=== PATIENT | male | born 1950 | race Caucasian/White ===

== ENCOUNTER → 2020-05-28 | Outpatient (CLI) | payer MEDICARE, OTHER ==
[2020-05-28 11:44] LABS: ABSOLUTE EOSINOPHILS # (AUTO) 0.3 10^3/uL (0.0-0.6); ABSOLUTE LYMPHOCYTES (AUTO) 1.4 10^3/uL (0.5-4.7); ABSOLUTE MONOCYTES (AUTO) 0.6 10^3/uL (0.1-1.4); ABSOLUTE NEUT (AUTO) 3.5 10^3/uL (1.7-8.2); BASOPHILS % (AUTO) 0.6 % (0-2); EOSINOPHILS % (AUTO) 4.3 % (0-6); HEMATOCRIT 53.4 % (37.9-51.0); HEMOGLOBIN 18.3 g/dL (13.5-17.0); LYMPHOCYTES % (AUTO) 23.8 % (13-45); MEAN CORPUSCULAR HEMOGLOBIN 31.6 pg (27.0-33.4); MEAN CORPUSCULAR HGB CONC 34.2 g/dL (32.0-36.0); MEAN CORPUSCULAR VOLUME 92 fl (80-97); MONOCYTES % (AUTO) 10.2 % (3-13); PLATELET COUNT 231 10^3/uL (150-450); RED BLOOD COUNT 5.79 10^6/uL (4.35-5.55); RED CELL DISTRIBUTION WIDTH 13.8 % (11.5-14.0); SEGMENTED NEUTROPHILS % (AUTO) 61.1 % (42-78); TOTAL CELLS COUNTED % (AUTO) 100 %; WHITE BLOOD COUNT 5.8 10^3/uL (4.0-10.5)
[2020-05-28 12:02] LABS: ALBUMIN 4.3 g/dL (3.5-5.0); ALKALINE PHOSPHATASE 70 U/L (38-126); ANION GAP 6 (5-19); ASPARTATE AMINO TRANSFERASE 28 U/L (17-59); BILIRUBIN,TOTAL 0.7 mg/dL (0.2-1.3); BLOOD UREA NITROGEN 19 mg/dL (7-20); CALCIUM 9.8 mg/dL (8.4-10.2); CARBON DIOXIDE 29 mmol/L (22-30); CHLORIDE 107 mmol/L (98-107); CHOLESTEROL 271.04 mg/dL (0-200); GLUCOSE 116 mg/dL (75-110); POTASSIUM 4.3 mmol/L (3.6-5.0); TOTAL PROTEIN 7.4 g/dL (6.3-8.2); TRIGLYCERIDES 114 mg/dL (<150)
[2020-05-28 12:14] LABS: DIRECT LDL 210 mg/dL (<100)
== END ==
LOC: OD 10:57
PROVIDERS: ATTEND Internal Medicine
DX: I10 Essential (primary) hypertension (principal); E78.5 Hyperlipidemia, unspecified; G45.1 Carotid artery syndrome (hemispheric); R73.9 Hyperglycemia, unspecified; N40.1 Benign prostatic hyperplasia with lower urinary tract symptoms; R35.1 Nocturia; Z86.73 Personal history of transient ischemic attack (TIA), and cerebral infarction without residual deficits
CPT/HCPCS: 36415; 80053; 80061; 83036; 84153; 84443; 85025

== ENCOUNTER → 2020-05-29 | Outpatient (CLI) | payer MEDICARE, OTHER ==
--- NOTE | 2020-05-29 15:16 | RADIOLOGY REPORT (SQ) ---
EXAM DESCRIPTION: MRI HEAD WITHOUT; MRA HEAD WITHOUT IMAGES COMPLETED DATE/TIME: 05/29/2020 2:44 pm REASON FOR STUDY: G45.3 AMAUROSIS FUGAX, G45.1 CAROTID ARTERY SYNDROME (HEMISPHERIC), I63.9 C; G45.3 G45.3 AMAUROSIS FUGAX G45.1 CAROTID ARTERY SYNDROME (HEMISPHERIC) I63.9 CEREBRAL INFARCTION, UNSP ECIFIED COMPARISON: None. TECHNIQUE: Multiplanar imaging includes non-contrasted T1, T2, FLAIR, and diffusion with ADC map seq uences. [place] MRA EXAM WAS PERFORMED WITH 3D [id number] ACQUISITION. SOURCE DATA AND MAXIMUM INTENSITY PROJECTED IMAGES WERE REVIEWED. Images stored on PACS. LIMITATIONS: None. FINDINGS: [place] MRA: Abnormally decreased flow is seen in the right high cervical interna l carotid artery, right ICA at the skullbase and parasellar regions with trace flow in the right para clinoid region. Findings are worrisome for more proximal high-grade critical stenosis at the right c arotid bifurcation. Markedly diminished flow signal is seen in the right middle cerebral artery and its perisylvian branc hes. Normal flow signal in the left high cervical internal carotid artery, left internal carotid artery at the skullbase, left anterior and middle cerebral arteries. Normal flow signal in the vertebrobasilar system. MRI BRAIN WITHOUT CONTRAST: CSF SPACES: Normal in size and contour. No hemorrhage. CEREBRUM: Diffusion-weighted images are positive for acute/early subacute nonhemorrhagic ischemic aleksander nge in the right deep periventricular white matter from watershed ischemia. Corresponding increased FLAIR/ T2 signal indicates that these ischemic changes are greater than 24 hours old. T2 weighted brain images demonstrate abnormal flow signal in the right high cervical internal carotid artery, and carotid artery at the skullbase/paraclinoid ICA which correlates with the MRA exam. POSTERIOR FOSSA: No signal alteration. No hemorrhage. No edema, masses or mass effect. Internal margarita tory canals, cerebello-pontine angles, mastoids normal. DIFFUSION IMAGING: Diffusion-weighted images are positive for acute/early subacute nonhemorrhagic isc hemic change in the right deep periventricular white matter from watershed ischemia. Corresponding i ncreased FLAIR/ T2 signal indicates that these ischemic changes are greater than 24 hours old. ORBITS: No masses. Globes normal. PARANASAL SINUSES: No fluid levels. Mucosa normal. OTHER: No other significant finding. IMPRESSION: Early subacute nonhemorrhagic watershed ischemic change in the right deep periventricula r white matter from more proximal carotid bifurcation disease. Abnormal flow signal in the right high cervical, skullbase, paraclinoid ICA from more proximal high-g rade stenosis. Results discussed with , 1430 hours 05/29/2020 as a critical result EVIDENCE OF ACUTE STROKE: Early subacute nonhemorrhagic right hemisphere watershed distribution COMMENT: Pertinent findings on the imaging study reported as a CRITICAL RESULT to ROSANNA Clement MD at14:30 on 05/29/2020. Category of Critical Result: Stroke TECHNICAL DOCUMENTATION: JOB ID: [id number] 2010 [employer]- All Rights Reserved Reading location - IP/workstation name: [email or web address]
--- NOTE | 2020-05-29 15:16 | RADIOLOGY REPORT (SQ) ---
EXAM DESCRIPTION: MRI HEAD WITHOUT; MRA HEAD WITHOUT IMAGES COMPLETED DATE/TIME: 05/29/2020 2:44 pm REASON FOR STUDY: G45.3 AMAUROSIS FUGAX, G45.1 CAROTID ARTERY SYNDROME (HEMISPHERIC), I63.9 C; G45.3 G45.3 AMAUROSIS FUGAX G45.1 CAROTID ARTERY SYNDROME (HEMISPHERIC) I63.9 CEREBRAL INFARCTION, UNSP ECIFIED COMPARISON: None. TECHNIQUE: Multiplanar imaging includes non-contrasted T1, T2, FLAIR, and diffusion with ADC map seq uences. [place] MRA EXAM WAS PERFORMED WITH 3D [id number] ACQUISITION. SOURCE DATA AND MAXIMUM INTENSITY PROJECTED IMAGES WERE REVIEWED. Images stored on PACS. LIMITATIONS: None. FINDINGS: [place] MRA: Abnormally decreased flow is seen in the right high cervical interna l carotid artery, right ICA at the skullbase and parasellar regions with trace flow in the right para clinoid region. Findings are worrisome for more proximal high-grade critical stenosis at the right c arotid bifurcation. Markedly diminished flow signal is seen in the right middle cerebral artery and its perisylvian branc hes. Normal flow signal in the left high cervical internal carotid artery, left internal carotid artery at the skullbase, left anterior and middle cerebral arteries. Normal flow signal in the vertebrobasilar system. MRI BRAIN WITHOUT CONTRAST: CSF SPACES: Normal in size and contour. No hemorrhage. CEREBRUM: Diffusion-weighted images are positive for acute/early subacute nonhemorrhagic ischemic aleksander nge in the right deep periventricular white matter from watershed ischemia. Corresponding increased FLAIR/ T2 signal indicates that these ischemic changes are greater than 24 hours old. T2 weighted brain images demonstrate abnormal flow signal in the right high cervical internal carotid artery, and carotid artery at the skullbase/paraclinoid ICA which correlates with the MRA exam. POSTERIOR FOSSA: No signal alteration. No hemorrhage. No edema, masses or mass effect. Internal margarita tory canals, cerebello-pontine angles, mastoids normal. DIFFUSION IMAGING: Diffusion-weighted images are positive for acute/early subacute nonhemorrhagic isc hemic change in the right deep periventricular white matter from watershed ischemia. Corresponding i ncreased FLAIR/ T2 signal indicates that these ischemic changes are greater than 24 hours old. ORBITS: No masses. Globes normal. PARANASAL SINUSES: No fluid levels. Mucosa normal. OTHER: No other significant finding. IMPRESSION: Early subacute nonhemorrhagic watershed ischemic change in the right deep periventricula r white matter from more proximal carotid bifurcation disease. Abnormal flow signal in the right high cervical, skullbase, paraclinoid ICA from more proximal high-g rade stenosis. Results discussed with , 1430 hours 05/29/2020 as a critical result EVIDENCE OF ACUTE STROKE: Early subacute nonhemorrhagic right hemisphere watershed distribution COMMENT: Pertinent findings on the imaging study reported as a CRITICAL RESULT to ROSANNA Clement MD at14:30 on 05/29/2020. Category of Critical Result: Stroke TECHNICAL DOCUMENTATION: JOB ID: [id number] 2010 [employer]- All Rights Reserved Reading location - IP/workstation name: [email or web address]
--- NOTE | 2020-05-29 15:47 | RADIOLOGY REPORT (SQ) ---
EXAM DESCRIPTION: CAROTID DOPPLER IMAGES COMPLETED DATE/TIME: 05/29/2020 3:24 pm REASON FOR STUDY: TIA/CVA G45.3 AMAUROSIS FUGAX G45.1 CAROTID ARTERY SYNDROME (HEMISPHERIC) I63.9 CEREBRAL INFARCTION, UNSPECIFIED COMPARISON: MRI brain, MRA exam [place] same date TECHNIQUE: Grayscale ultrasound, Doppler velocity and spectra, and color Doppler images acquired of the extra-cranial carotid and vertebral arteries. Images stored on PACS. LIMITATIONS: None. FINDINGS: RIGHT CAROTID CCA Velocities: Within normal limits. ICA Velocities No flow is identified at the right proximal internal carotid artery at the carotid bifurcation. Hypo echoic clot is present. LEFT CAROTID CCA Velocities: Within normal limits. ICA Velocities Peak systolic 0.63 m/s. End diastolic 0.18 m/s. Proximal ICA/CCA peak systolic ratio normal. Spectra normal. No significant plaque. VERTEBRAL ARTERIES: Antegrade flow. Normal waveforms. SUBCLAVIAN ARTERIES: Not evaluated OTHER: No other significant finding. IMPRESSION: No flow is identified in the proximal right internal carotid artery at the bifurcation b y Doppler. MRA exam today [place] does demonstrate faint flow in the high cervical internal carotid artery and ICA at the skullbase. Flow on MRA exam in the high cervical carotid could be due to collateral flow or "string sign" at the right carotid bifurcation not detected by Doppler. Findings discussed with Dr. King 1500 hours 05/29/2020 COMMENT: Quality ID #[id number]: Velocity criteria are extrapolated from the diameter data as defined by t [place] Society of Radiologists in Ultrasound Consensus Conference. Radiology 2003: 229; 340-346. TECHNICAL DOCUMENTATION: JOB ID: [id number] 2010 [employer]- All Rights Reserved Reading location - IP/workstation name: [email or web address]
== END ==
LOC: RAD 13:40
PROVIDERS: ATTEND Internal Medicine
DX: G45.3 Amaurosis fugax (principal)
CPT/HCPCS: 70544; 70551; 93880

== ENCOUNTER → 2020-07-23 | Outpatient (CLI) | payer MEDICARE, OTHER ==
--- NOTE | 2020-07-23 13:06 | DRAGON STRESS TEST REPORT ---
Name: Ki James : Apr Date: JUL 18 The patient underwent a stress/rest, single isotope SPECT Imaging with exercise stress and gated SPECT imaging for evaluation of. The patient underwent treadmill exercise using the Felix protocol, completing 6:30 minutes and completing an estimated workload of 8.50 metabolic equivalents (METS). The test was terminated due to fatigue. The heart rate was 84 beats per minute at baseline and increased to 151 beats at peak exercise, which was 99% of the maximum predicted heart rate. The rest blood pressure was 140/90 mm/Hg and increased to 174/96 mm/Hg, which is a normal response. The patient complained of no symptoms during the procedure. The resting electrocardiogram demonstrated NSR and did not show ST-segment changes consistent with ischemia. Myocardial perfusion imaging was performed at rest following the injection of 14.31mCi of sestamibi. At peak exercise, the patient was injected with 44.4mCi of sestamibi and exercise was continued for minute(s). Gating post-stress tomographic imaging was performed 60 minutes after stress. Findings The overall quality of the study is good. Raw images demonstrate inferior wall liver contamination artifacts. Left ventricular cavity is noted to be normal on the rest and stress studies. Resting SPECT images demonstrate a small sized, of mild intensity perfusion defect in the inferior wall. The stress images reveal a small sized, of mild intensity perfusion defect in the inferior wall. Gated SPECT imaging reveals normal myocardial thickening and wall motion. The left ventricular ejection fraction was calculated to be 55%. Impression -Myocardial perfusion imaging is normal with the above artifacts. -The fixed perfusion defects described above are secondary to tissue attenuation and liver contamination. -There is no scintigraphic evidence of ischemia or infarct. -Overall left ventricular systolic function was normal without wall motion abnormalities. -There are no prior studies for comparison. MTDD
== END ==
LOC: RAD 07:16
PROVIDERS: ATTEND Internal Medicine Cardiovascular Disease
DX: R94.31 Abnormal electrocardiogram [ECG] [EKG] (principal); I47.2 Ventricular tachycardia; I73.9 Peripheral vascular disease, unspecified
CPT/HCPCS: 93017; 78452; A9500; Q9969

== ENCOUNTER → 2020-07-31 | Outpatient (CLI) | payer MEDICARE, OTHER ==
[2020-07-31 10:41] LABS: ALBUMIN 4.1 g/dL (3.5-5.0); ALKALINE PHOSPHATASE 65 U/L (38-126); ASPARTATE AMINO TRANSFERASE 44 U/L (17-59); BILIRUBIN,DIRECT 0.3 mg/dL (0.0-0.4); BILIRUBIN,TOTAL 0.8 mg/dL (0.2-1.3); TOTAL PROTEIN 6.4 g/dL (6.3-8.2)
== END ==
LOC: OD 09:21
PROVIDERS: ATTEND Internal Medicine
DX: R79.89 Other specified abnormal findings of blood chemistry (principal)
CPT/HCPCS: 36415; 80076

== ENCOUNTER → 2020-08-19 | Outpatient (CLI) | payer MEDICARE, OTHER ==
--- NOTE | 2020-08-19 15:56 | RADIOLOGY REPORT (SQ) ---
EXAM DESCRIPTION: ARTHRO SHOULDER INJECTION; FLUORO/NEEDLE PLACEMENT IMAGES COMPLETED DATE/TIME: 08/19/2020 3:47 pm; 08/19/2020 3:46 pm REASON FOR STUDY: (S43.432A)SUPERIOR GLENOID LABRUM LESION OF LEFT SHOULDER, INIT ENCNTR S43.432A S UPERIOR GLENOID LABRUM LESION OF LEFT SHOULDER, IN COMPARISON: None. FLUOROSCOPY TIME: 0.1 minutes 2 images saved to PACS. LIMITATIONS: None. PROCEDURE: Procedure, risks, benefits and alternatives explained to patient who then gave written co nsent. The left shoulder was marked and a time out was called for correct procedure verification. Po sterior entry site marked using fluoroscopic guidance. Shoulder prepped and draped using sterile salomon hnique. Local anesthesia achieved using 1% lidocaine injection. Hypodermic needle introduced into t he joint space under direct fluoroscopic visualization. Non-ionic contrast instilled to confirm intra -articular position. Dilute gadolinium solution then injected. Needle removed and entry site covered with sterile bandage. No immediate complications noted. TECHNIQUE: Digital images acquired during fluoroscopy and stored on PACS. Patient immediately take n to the MR suite for additional imaging. INJECTION LOCATION: Left posterior shoulder CONTRAST TYPE AND AMOUNT: 1 mL Omnipaque 300, 10 mL dilute ProHance. IMPRESSION: SUCCESSFUL NEEDLE PLACEMENT AND INJECTION FOR LEFT SHOULDER MR ARTHROGRAM USING POSTERIO R APPROACH. COMMENT: None Quality ID [id number]: Final reports for procedures using fluoroscopy that document radiation exposure paul marce, or exposure time and number of fluorographic images (if radiation exposure indices are not avail able) TECHNICAL DOCUMENTATION: JOB ID: [id number] 2010 [employer]- All Rights Reserved Reading location - IP/workstation name: [email or web address] [id number]
--- NOTE | 2020-08-19 17:16 | RADIOLOGY REPORT (SQ) ---
EXAM DESCRIPTION: MRI LT UPPER JOINT WITH IMAGES COMPLETED DATE/TIME: 08/19/2020 4:34 pm REASON FOR STUDY: (S42.432A)SUPERIOR GLENOID LABRUM LESION OF LEFT SHOULDER, INIT ENCNTR S43.432A S UPERIOR GLENOID LABRUM LESION OF LEFT SHOULDER, IN COMPARISON: None. TECHNIQUE: Left shoulder images acquired and stored on PACS. Oblique coronal, oblique sagittal, and axial imaging to include fat sensitive sequences as T1, water sensitive sequences as FST2/STIR, and c ontrast sensitive sequences as FST1. LIMITATIONS: None. FINDINGS: JOINT DISTENTION: Adequate distention for interpretation. BONE MARROW AND CORTEX: Normal. No significant osteophytes. No edema or defects. AC JOINT: Moderate AC arthropathy, predominantly dorsal overgrowth. Mild undersurface acromial spurri ng without subacromial compromise. GLENOHUMERAL JOINT: No subluxation or dislocation. No focal chondral defects or reactive bone changes . ROTATOR CUFF: Heterogeneous appearance of the cuff at insertion. Consistent with calcific tendonitis and probable partial tearing. No full-thickness gap in the supraspinatus or infraspinatus. Subscap ularis looks intact. There is mild atrophy present throughout the cuff, most notable in the teres. LABRUM AND BICEPS LABRAL COMPLEX: Low grade fraying in the superior labrum to include the anchor. Lo ng head biceps tendon looks relatively intact. INFERIOR LABRAL COMPLEX: Bony glenoid and labrum intact. IGHL intact without thickening or tear. No p aralabral cysts. ADJACENT SOFT TISSUES: No masses or nodes. OTHER: No other significant finding. IMPRESSION: 1. Cuff disease. Calcific tendinitis and partial tear with atrophy. No full-thickness breech. 2. Low grade fraying in the biceps anchor. Higher grade SLAP lesion not suggested. Biceps tendon in tact. TECHNICAL DOCUMENTATION: JOB ID: [id number] 2010 [employer]- All Rights Reserved Reading location - IP/workstation name: [email or web address]
== END ==
LOC: RAD 13:19 → EDSTATUS 15:00
PROVIDERS: ATTEND Internal Medicine
DX: S43.432A Superior glenoid labrum lesion of left shoulder, initial encounter (principal); X58.XXXA Exposure to other specified factors, initial encounter; Y93.9 Activity, unspecified; Y92.9 Unspecified place or not applicable
CPT/HCPCS: 73222; 77002; 23350; A9576